=== PATIENT | male | born 1950 | race Caucasian/White ===

== ENCOUNTER → 2017-01-16 | Day surgery (SDC) | payer MEDICARE ==
--- NOTE | 2017-01-15 18:54 | MH ---
cc: ANA BACH DATE OF ADMISSION: 01/16/2017 ADMITTING DIAGNOSIS: HISTORY OF PRESENT ILLNESS: The patient is a 66-year-old gentleman with chronic sinusitis and nasal obstruction for nasal sinus surgery, open septal reconstruction, turbinectomy and endoscopic balloon sinusotomies and the microdebrider sinusotomy. PAST MEDICAL HISTORY Unremarkable PAST SURGICAL HISTORY Unremarkable REVIEW OF SYSTEMS, FAMILY HISTORY, SOCIAL HISTORY: Unremarkable. PHYSICAL EXAMINATION Well-appearing patient, no acute distress noted. HEENT: Exam reveals significant septal deflection, turbinate hypertrophy, mucopurulent secretion. Oral cavity clear. Neck: Soft, supple, no masses. Lungs: Clear. Heart: Regular rate and rhythm. Abdomen: Soft and nontender. Extremities: Without cyanosis, clubbing or edema. Neurologically, alert and oriented, nonfocal neurologic exam. IMPRESSION A patient with chronic sinusitis and nasal obstruction for sinus surgery and nasal surgery. PLAN: The patient was instructed as to the method of surgery and possible complication. These include anesthetic complications, cardiac difficulty, pulmonary difficulty, stroke, coma or even . Surgical complications, bleeding, infection, risk of transfusion, risk of injury to orbit including blindness and diplopia, risk of injury to brain including CSF leak, meningitis, or even . In addition to persistent sinusitis, facial pain and pressure, recurrent polyposis. The patient appeared to agree, accept and understand the above-mentioned risks and benefits. In addition, no guarantees or warrantees regarding outcome were given. Will, therefore, proceed with surgery. Ana Bach MD [facility]/[place] /6:14 PM /6:49 PM
[~2017-01-16] VITALS: Ht 185.4 cm; Wt 99.4 kg
[~2017-01-16] MED LIST: ACET1CAP18 PO; ACETAMINOPHEN 1000 MG/100 ML VIAL IV ONE; ACETAMINOPHEN/HYDROcodone 325 MG/7.5 MG TAB PO PRN; ALBUAER3 INH; AZEL1SPR2 EACH NARE; CARA1TAB6 PO; CENTTAB PO; DIAZ5 PO; DO NOT ADM ANY ANTICOAGULANT DRUGS XX PRN; EPINEPHrine HCL (1:1000) 30 MG/30 ML VIAL OTHER ONE; FLUT1SPR5 EACH NARE; GLUC500C5 PO; GLYB5TAB3 PO; GRAP100C PO; INSULIN HUMAN REGULAR 1,000 UNITS/10 ML VIAL SQ PRN; L-ME1CAP2 PO; LACTATED RINGER'S 1000 ML IV SCH; LIDOCAINE 1%/EPINEPHrine 1:100,000 SOLN 30 ML VIAL INFIL ONE; METOPROLOL TARTRATE 25 MG TAB PO PRN; MONT10TA4 PO; MORPHINE SULFATE 4 MG/ML INJ IV PUSH PRN; NAPR220T95 PO; NEOSTIGMINE 3 MG/3 ML SYR IV ONE; ONDANSETRON HCL 4 MG/2 ML VIAL IV PUSH ONE; ONDANSETRON HCL 4 MG/2 ML VIAL IV PUSH PRN; PATA0.2S EACH EYE; PHENYLEPH/NS 1000 MCG/10 ML SYR IV ONE; PROPOFOL 200 MG/20 ML AMP IV ONE; RABE1TAB PO; SODIUM CHLORID 0.9% 500 ML IV SCH; SYMB80AE INH; TAMS0.4C4 PO; TAMS5CAP PO; TRAZ100T4 PO; VITA400C5 PO; VYTO10TA8 PO; XYZA5TAB2 PO; fentaNYL CITRATE 250 MCG/5 ML AMP ONE
[2017-01-16 07:54] VITALS: BP 119/74; PULSE 68; RESP 20; TEMP 98.6; O2SAT 96
[2017-01-16 08:04] LABS: AUTOMATED NEUTROPHIL # 3.8 TH/MM3 (1.8-7.7); BASOPHIL # 0.1 TH/MM3 (0-0.2); BASOPHIL % 0.8 % (0.0-2.0); EOSINOPHIL # 0.7 TH/MM3 (0-0.4); EOSINOPHIL % 9.8 % (0.0-4.0); HEMATOCRIT 40.5 % (39.0-51.0); HEMO FLAGS DIFF FINAL; LYMPH % 28.1 % (9.0-44.0); MEAN CELL VOLUME 96.3 FL (80.0-100.0); MEAN CORPUSCULAR HEMOGLOBIN 32.6 PG (27.0-34.0); MEAN CORPUSCULAR HGB CONC 33.9 % (32.0-36.0); NEUT % 52.3 % (16.0-70.0); PLATELET COUNT 142 TH/MM3 (150-450); RED CELL DISTRIBUTION WIDTH 12.7 % (11.6-17.2); WHITE BLOOD COUNT 7.2 TH/MM3 (4.0-11.0)
[2017-01-16 11:23] VITALS: TEMP 98
[2017-01-16 11:50] VITALS: BP 115/66; PULSE 62; RESP 18; O2SAT 99
--- NOTE | 2017-01-16 19:05 | EKG ---
Date Performed: 01/16/2017 Time Performed: 07:15:32 PTAGE: 66 years EKG: Sinus rhythm MARKED LEFT AXIS DEVIATION RIGHT BUNDLE BRANCH BLOCK MINIMAL VOLTAGE CRITERIA FOR LVH, CONSIDER NORM AL VARIANT ABNORMAL ECG NO PREVIOUS TRACING DOCTOR: Maco Mesa Interpretating Date/Time 01/16/2017 19:03:58
--- NOTE | 2017-01-17 10:32 | MP ---
cc: ANA BACH DATE OF SURGERY: 01/16/2017 PREOPERATIVE DIAGNOSIS Chronic sinusitis, nasal obstruction. POSTOPERATIVE DIAGNOSIS Chronic sinusitis, nasal obstruction. PROCEDURE 1. Open septal reconstruction. 2. Bilateral endoscopic frontal sinusotomy. 3. Bilateral endoscopic anterior and posterior ethmoidectomy. 4. Bilateral endoscopic maxillary antrostomy with removal of tissue. 5. Bilateral inferior turbinectomy, submucous resection. ANESTHESIA General. ESTIMATED BLOOD LOSS 300 cc. COMPLICATIONS No complications. OPERATING SURGEON Dr. Bach OPERATION Prepped and draped in the usual fashion. 1% Xylocaine with 100,000 epinephrine injected into nasal septum, inferior turbinates, middle meatus bilaterally. 1:1000 adrenaline-soaked pledgets were placed and then removed. Once this was achieved attention was turned to the left middle meatus whereby polyposis was noted in the middle meatus. A microdebrider was used to remove the polyposis as well as the significant uncinate process removed with the microdebrider. Natural antrostomy identified and enlarged and polypoid tissue removed from it. Anterior posterior ethmoidectomy performed with microdebrider under endoscopic visualization in addition to significant removal of frontal sinus recess infection. Telfa splint placed in left middle meatus. Once this was achieved attention was turned to the opposite side whereby significant polypoid tissue removed from middle meatus. Anterior posterior ethmoidectomy performed under endoscopic visualization. Natural antrostomy enlarged with microdebrider. Frontal sinus recess dissection performed with microdebrider as well. Telfa splint placed. Mucoperichondrial incision made left side of nose. Mucoperichondrial flap elevated. Significant amount of bone and cartilage removed to improve nasal airway and reduce nasal fracture. Mucoperichondrial flap re-approximated. Inferior turbinate resection was performed submucosally with the Coblator probe, multiple insertions bilaterally sparing mucosa and reducing the turbinate. Bilateral Nasopore dressing placed. The patient tolerated procedure well. MD RENU [facility] /7:43 AM /10:22 AM
== END | disposition home or self-care (01) ==
LOC: HSDC 06:41 → EDUNIT# 09:00
PROVIDERS: ATTEND Specialist
DX: J32.9 Chronic sinusitis, unspecified (principal); J34.3 Hypertrophy of nasal turbinates; J34.2 Deviated nasal septum; R94.31 Abnormal electrocardiogram [ECG] [EKG]; J44.9 Chronic obstructive pulmonary disease, unspecified; J45.909 Unspecified asthma, uncomplicated
CPT/HCPCS: 00160; 30140; 30520; 31255; 31267; 31276; 85025; 93005; J0131; J0171; J2370; J2405; J2710; J3010; J7120